=== PATIENT | female | born 1960 | race Caucasian/White ===

== ENCOUNTER → 2016-08-29 | Outpatient (CLI) | payer BC | END | disposition home or self-care (01) | LOC: C.PAPS 11:24 | PROVIDERS: ATTEND Obstetrics & Gynecology | DX: Z01.419 Encounter for gynecological examination (general) (routine) without abnormal findings (principal) ==

== ENCOUNTER → 2016-09-15 | Outpatient (CLI) | payer BC ==
--- NOTE | 2016-09-15 13:47 | MAMMOGRAPHY REPORT ---
UNILATERAL LEFT DIGITAL DIAGNOSTIC MAMMOGRAM TOMOSYNTHESIS WITH CAD AND TARGETED LEFT ULTRASOUND: 08/25 CLINICAL HISTORY: The patient reports left breast tenderness for approximately 4 months. She does no t feel a clear palpable lump in the region. Also here for short interval follow-up of left breast ca lcifications. TECHNIQUE: Breast tomosynthesis in addition to standard 2D mammography was performed. Current study was also evaluated with a Computer Aided Detection (CAD) system. Left CC and MLO 2-D and tomosynthes is images and spot magnification left CC and ML views were obtained. COMPARISON: Comparison is made to exams dated: 03/09/2016 mammogram, 03/01/2016 mammogram, 02/26/2015 mammogram, 02/18/2014 mammogram, 02/05/2013 mammogram, and 07/14/2010 mammogram - [facility] [place] Zac Mixon. BREAST COMPOSITION: The tissue of the left breast is extremely dense, which lowers the sensitivity o f mammography. FINDINGS: A square marker silverio the site of breast tenderness in the left inferior breast at approxi mately 6:00. There are no suspicious masses or other suspicious mammographic abnormalities in this r egion. The remainder of the left breast is stable compared to prior exams, without suspicious masses , calcifications, or areas of architectural distortion noted. Spot magnification views of the left b reast demonstrate a few scattered punctate benign-appearing calcifications within the left lateral br east, which are stable compared to spot magnification views dated 03/09/2016 and also appear stable o n full-field views dating back to at least January 2014. No suspicious cluster of microcalcificatio ns is noted. Targeted ultrasound was performed of the area of tenderness pointed out by the patient, in the left b reast at 5:00 approximately 5 cm from the nipple. Sonographically normal tissue is noted in this reg ion, without evidence of a mass or other suspicious sonographic abnormality. IMPRESSION: ACR BI-RADS CATEGORY 2: BENIGN, TARGETED ULTRASOUND ACR BI-RADS CATEGORY 2: BENIGN No suspicious mammographic or sonographic abnormality at the site of left inferior breast tenderness pointed out by the patient. No new or suspicious cluster of microcalcifications noted within the lef t breast. There is no mammographic or targeted sonographic evidence of malignancy. Recommend clinic al follow-up for left breast tenderness, and recommend routine bilateral screening mammograms which a re due February 2017. The patient has been verbally notified of the results. Approximately 10% of breast cancers are not detected with mammography. A negative mammographic report should not delay biopsy if a clinically suggestive mass is present. Awilda Mari M.D. ah/:09/15/2016 08:32:54 [employer] Printer: Stephen BOND(Brittany)(Lavinia), [facility] letter sent: Normal 1/2 BI-RADS Code: ACR BI-RADS Category 2: Benign Ultrasound BI-RADS: ACR BI-RADS Category 2: Benign
== END | disposition home or self-care (01) ==
LOC: C.MAMM 07:57
PROVIDERS: ATTEND Obstetrics & Gynecology
DX: Z09 Encounter for follow-up examination after completed treatment for conditions other than malignant neoplasm (principal); N63 Unspecified lump in breast; N64.4 Mastodynia